=== PATIENT | female | born 1940 | race Two or more races ===

== ENCOUNTER 2021-01-16 12:29 | Inpatient (IN) | payer MEDICARE, OTHER ==
[~2021-01-16] VITALS: Ht 172.7 cm; Wt 86.2 kg
--- NOTE | 2021-01-16 12:30 | NUR ---
pt bib ra 100 from [facility], s/p witnessed syncope at launch table, no trauma per report. in field pt hypertensive, bs wnl. in hospital pt mumbles her name, does not know why she is here, lethargic, unable/reluctant to answer questions, does not follow directions.
[2021-01-16 13:01] LABS: HEMATOCRIT 40.9 % (31.2-41.9); MEAN CORPUSCULAR HEMOGLOBIN 32.5 uug (24.7-32.8); MEAN CORPUSCULAR VOLUME 97.5 fL (75.5-95.3); PLATELET COUNT (AUTO) 197 K/uL (179-408)
[2021-01-16 13:07] LABS: CARBON DIOXIDE 27 mmol/L (21-32); CHLORIDE 103 mmol/L (98-107); GLUCOSE 141 mg/dL (74-106); POTASSIUM 3.4 mmol/L (3.5-5.1); UREA NITROGEN, BLOOD 13 mg/dL (7-18)
[2021-01-16 13:12] LABS: *BILIRUBIN,URIN NEGATIVE (NEGATIVE); *BLOOD, URINE 1+ (NEGATIVE); *CLARITY,URINE CLEAR (CLEAR); *COLOR,URINE YELLOW (YELLOW); *KETONES,URINE NEGATIVE (NEGATIVE); *UROBILINOGEN,URINE 0.2 E.U./dl (NORMAL); LEUKOCYTE ESTERASE ,URINE NEGATIVE (NEGATIVE); NITRITE, URINE NEGATIVE (NEGATIVE); PH,URINE 5.5 (5.0-8.0); UGLUCOSE NEGATIVE (NEGATIVE)
[2021-01-16 13:13] LABS: ALANINE AMINOTRANSFERASE 25 U/L (14-59); ALKALINE PHOSPHATASE 70 U/L (50-136); ASPARTATE AMINOTRANSFERASE 19 U/L (15-37); BILIRUBIN,DIRECT 0.1 mg/dL (0.0-0.2); BILIRUBIN,TOTAL 0.3 mg/dL (0.2-1.0)
[2021-01-16 13:14] LABS: ACETAMINOPHEN < 2.0 ug/mL (10-30)
[2021-01-16] MEDS ORDERED: QUET25TA3 (13:15)
[2021-01-16] MEDS ORDERED: ARICEPT (13:15)
[2021-01-16 13:20] LABS: ETHANOL < 3 MG/DL (0-0)
[2021-01-16 13:21] LABS: *AMPHETAMINE, URINE NEGATIVE (NEGATIVE); *CANNABINOID, URINE POSITIVE (NEGATIVE); *COCCAINE, URINE NEGATIVE (NEGATIVE); *OPIATE, URINE NEGATIVE (NEGATIVE); *PHENCYCLIDINE SCREEN,URINE NEGATIVE (NEGATIVE)
--- NOTE | 2021-01-16 13:35 | NUR ---
DAUGHTER AT BEDSIDE TALKING TO DR. MOELLER.
[2021-01-16 13:37] LABS: THYROID STIMULATING HORMONE 0.675 mIU/mL (0.358-3.740)
--- NOTE | 2021-01-16 13:58 | NUR ---
PT DAUGHTER SAYS THAT THE PT TAKES RISPERDAL, AT NIGHT, DOES NOT KNOW THE DOSAGE
[2021-01-16] MEDS ORDERED: RISP1TAB7 PO (14:02)
--- NOTE | 2021-01-16 14:10 | NUR ---
daughter says that the pt mentation has improved since this am when she face timed the pt. per daughter pt back to her base line. pt talking and smiling now.
[2021-01-16 16:14] LABS: BACTERIA,URINE NONE SEEN /HPF (NONE SEEN); MUCUS,URINE FEW /LPF (0-FEW); WBC,URINE 0-3 /HPF (0-3); YEAST,URINE FEW /HPF (NONE SEEN)
[2021-01-16] MEDS ORDERED: ACETAMINOPHEN 325 MG TABLET PO PRN (19:15)
[2021-01-16] MEDS ORDERED: ONDANSETRON 4 MG/2 ML VIAL IV PRN (19:15)
[2021-01-16] MEDS ORDERED: TEMAZEPAM 15 MG CAPSULE PO PRN (19:15)
[2021-01-16] MEDS ORDERED: MAGNESIUM HYDROXIDE 30 ML LIQUID UDC PO PRN (19:15)
[2021-01-16 20:00] VITALS: BP 168/86
--- NOTE | 2021-01-16 20:03 | NUR ---
Report given to TORRES Ibarra.
[2021-01-16] MEDS ORDERED: TEMAZEPAM 7.5 MG CAPSULE PO PRN (20:30)
--- NOTE | 2021-01-16 20:38 | NUR ---
Pt. admitted to [facility], under care of Dr. Heredia Belongs List completed
[2021-01-16] MEDS: DOCUSATE SODIUM 100 MG CAPSULE PO SCH ×2 (21:00→21:52)
[2021-01-16] MEDS ORDERED: DOCUSATE SODIUM 250 MG CAPSULE PO SCH (21:00)
[2021-01-16] MEDS: risperiDONE 1 MG TABLET PO SCH ×2 (21:00→21:53)
--- NOTE | 2021-01-16 21:00 | NUR ---
Received pt from ER via [facility]; appears pleasant; pt's daughter at bedside; placed on tele; pt arrived with Banda cath; assisted with feeding.
--- NOTE | 2021-01-16 22:30 | NUR ---
Pt seen by MD; pt refused HS medications; pt became very combative; hitting staff; kicking staff; re-orientation rendered; pt pulled out IV; needs attended. MD aware; pt placed on soft wrist restraints and Haldol was ordered for her.
[2021-01-16] MEDS: HALOPERIDOL LACTATE 5 MG/1 ML VIAL IM PRN (23:11)
[2021-01-17] VITALS: BP 134/87
[2021-01-17] MEDS ORDERED: HALOPERIDOL LACTATE 5 MG/1 ML VIAL IM ONE (00:05)
[2021-01-17 04:00] VITALS: BP_SYST 113; BP_SYST 156; BP_DIAS 66; BP_DIAS 91
[2021-01-17 06:20] LABS: MEAN CORPUSCULAR HEMOGLOBIN 32.8 uug (24.7-32.8); MEAN CORPUSCULAR VOLUME 97.6 fL (75.5-95.3); PLATELET COUNT (AUTO) 219 K/uL (179-408)
[2021-01-17] MEDS: PANTOPRAZOLE SODIUM 40 MG TABLET.DR PO SCH (06:32)
[2021-01-17 07:42] LABS: BILIRUBIN,TOTAL 0.3 mg/dL (0.2-1.0); CREATININE 0.9 mg/dL (0.6-1.3); MAGNESIUM 2.4 mg/dL (1.8-2.4); PHOSPHOROUS 2.5 mg/dL (2.5-4.9); POTASSIUM 3.8 mmol/L (3.5-5.1); TOTAL PROTEIN, SERUM 8.2 g/dL (6.4-8.2)
[2021-01-17] MEDS ORDERED: ENOXAPARIN SODIUM 40 MG/0.4 ML DISP.SYRIN SQ SCH ×2 (09:00)
--- NOTE | 2021-01-17 09:30 | NUR ---
pt very aggressive and anxious. Pt Kicked me on chest wall. prior interventions non effective decreased stimuli turned on tv offered bed garcia. Haldol given
[2021-01-17] MEDS: ASPIRIN 81 MG TAB.CHEW PO SCH (09:36)
[2021-01-17] MEDS: METOPROLOL TARTRATE 25 MG TABLET PO SCH ×2 (09:36→19:55)
[2021-01-17] MEDS: ENOXAPARIN SODIUM 100 MG/ML DISP.SYRIN SQ SCH ×2 (09:40→19:58)
[2021-01-17] MEDS: HALOPERIDOL LACTATE 5 MG/1 ML VIAL IM PRN (09:41)
[2021-01-17 11:54] VITALS: BP 150/82
--- NOTE | 2021-01-17 12:00 | NUR ---
Pt able to get out of soft restraint bed alarm turned on. pt pulled on her Banda cath - urine now pinkish in color. pt hitting salesperson men's hats when getting pt back in bed.
[2021-01-17 15:19] VITALS: BP 153/93
[2021-01-17] MEDS: ATORVASTATIN 20 MG TABLET PO SCH (19:55)
[2021-01-17] MEDS: DOCUSATE SODIUM 100 MG CAPSULE PO SCH (19:55)
[2021-01-17] MEDS: risperiDONE 1 MG TABLET PO SCH (19:55)
--- NOTE | 2021-01-17 21:00 | NUR ---
pt very aggressive and anxious. Pt Kicked me and the sitter on stomach prior interventions non effective decreased stimuli turned on tv
[2021-01-17 22:32] VITALS: BP 117/50
[2021-01-18 04:00] VITALS: BP 154/85
[2021-01-18] MEDS: PANTOPRAZOLE SODIUM 40 MG TABLET.DR PO SCH (06:02)
--- NOTE | 2021-01-18 07:00 | NUR ---
patient is in bed, no acute distress noted, offered fluids, turned and repositioned, continue to monitor, kept clean and dry.
[2021-01-18 07:01] LABS: HEMATOCRIT 41.5 % (31.2-41.9); MEAN CORPUSCULAR HEMOGLOBIN 32.7 uug (24.7-32.8); MEAN CORPUSCULAR VOLUME 97.7 fL (75.5-95.3); PLATELET COUNT (AUTO) 226 K/uL (179-408)
[2021-01-18 07:13] LABS: CREATININE 0.9 mg/dL (0.6-1.3); PHOSPHOROUS 3.1 mg/dL (2.5-4.9); POTASSIUM 3.8 mmol/L (3.5-5.1)
[2021-01-18 07:31] VITALS: BP 121/98
[2021-01-18] MEDS: ENOXAPARIN SODIUM 100 MG/ML DISP.SYRIN SQ SCH ×2 (08:09→08:20)
[2021-01-18] MEDS: ASPIRIN 81 MG TAB.CHEW PO SCH (08:13)
[2021-01-18] MEDS: METOPROLOL TARTRATE 25 MG TABLET PO SCH ×2 (08:14→20:20)
--- NOTE | 2021-01-18 08:21 | NUR ---
lovenox held patient noted with hematuria
--- NOTE | 2021-01-18 09:00 | NUR ---
patient in bed, no acute distress noted, turned and repositioned, kept clean and dry, fluids offered, continue to monitor
[2021-01-18] MEDS: LOSARTAN POTASSIUM 25 MG TABLET PO SCH (09:24)
--- NOTE | 2021-01-18 09:30 | NUR ---
soft wrist restrain discontinued, continue to monitor for patient behaviour.
--- NOTE | 2021-01-18 09:49 | NUR ---
piping drafter dr ying is aware about troponin 3.111.
[2021-01-18 11:41] VITALS: BP 130/71
[2021-01-18 15:45] VITALS: BP 128/70
[2021-01-18] MEDS: HALOPERIDOL LACTATE 5 MG/1 ML VIAL IM PRN (16:31)
--- NOTE | 2021-01-18 18:37 | NUR ---
during shift, no combative episodes noted until after lunch, provided redirection, with some effectiveness for some period of time, restrains discontinued cook morning since patient has sitter, patient stated acting out, pulling the oxygen tubing, catheter, trying to get out of the bed in the evening, Haldol administered as ordered, effective, spoke to daughter, questions answered, kept patient comfortable, clean and dry, turned and repositioned, kept patient safe during shift. no skin issues noted.
--- NOTE | 2021-01-18 18:42 | NUR ---
patient is examined by dr Ortega psychatrist at bedside for psych issues
[2021-01-18] MEDS: DOCUSATE SODIUM 100 MG CAPSULE PO SCH (20:19)
[2021-01-18] MEDS: ATORVASTATIN 20 MG TABLET PO SCH (20:19)
[2021-01-18] MEDS: risperiDONE 1 MG TABLET PO SCH (20:19)
[2021-01-19] MEDS: HALOPERIDOL LACTATE 5 MG/1 ML VIAL IM PRN ×2 (02:42→19:36)
[2021-01-19] MEDS: PANTOPRAZOLE SODIUM 40 MG TABLET.DR PO SCH (06:38)
[2021-01-19 07:00] LABS: HEMATOCRIT 39.9 % (31.2-41.9); MEAN CORPUSCULAR HEMOGLOBIN 32.7 uug (24.7-32.8); MEAN CORPUSCULAR VOLUME 98.1 fL (75.5-95.3); PLATELET COUNT (AUTO) 192 K/uL (179-408)
[2021-01-19 07:17] LABS: CREATININE 1.3 mg/dL (0.6-1.3); POTASSIUM 3.8 mmol/L (3.5-5.1)
--- NOTE | 2021-01-19 07:30 | NUR ---
Sleeping, appears comfortable. 1:1 sitter at bedside.
[2021-01-19 08:00] VITALS: BP 120/49
--- NOTE | 2021-01-19 09:30 | NUR ---
patient assisted to the bathroom with help of assistant womens volleyball coach. [facility], patient ate breakfast without difficulty.
[2021-01-19] MEDS: LOSARTAN POTASSIUM 25 MG TABLET PO SCH (09:32)
[2021-01-19] MEDS: ASPIRIN 81 MG TAB.CHEW PO SCH (09:32)
[2021-01-19] MEDS: METOPROLOL TARTRATE 25 MG TABLET PO SCH ×2 (09:40→21:00)
[2021-01-19 12:00] VITALS: BP 122/52
--- NOTE | 2021-01-19 13:30 | NUR ---
patient requesting to ambulate, physical therapist in room room, upon standing with assistance of physical therapist and rehabilitation assistant patient states feeling dizzy, patient was sat down at the edge of bed. Blood pressure was checked and noted to be 85/60 hr: 77. patient was laid onto bed, legs elevated.
--- NOTE | 2021-01-19 14:00 | NUR ---
patient currently laying in bed blood pressure reassessed b/p: 107/70 hr: 77.
[2021-01-19 15:44] VITALS: BP 110/62
--- NOTE | 2021-01-19 16:40 | NUR ---
DR. Karimi aware of x1 episode of low blood pressure, per doctor she will reassess the medications and recommends parameter of hold <110.
--- NOTE | 2021-01-19 17:00 | NUR ---
patient currently laying in bed in no distress at this time. v/s wnl.
[2021-01-19 20:00] VITALS: BP 108/58
[2021-01-19] MEDS: DOCUSATE SODIUM 100 MG CAPSULE PO SCH (21:00)
[2021-01-19] MEDS ORDERED: risperiDONE 1 MG TABLET PO SCH (21:00)
[2021-01-19] MEDS: ATORVASTATIN 20 MG TABLET PO SCH (21:00)
[2021-01-20] VITALS: BP 117/62
[2021-01-20 04:00] VITALS: BP 110/65
--- NOTE | 2021-01-20 05:43 | NUR ---
Pt rested in between care; last night; very combative; haldol given x1; pt assisted to bathroom and had BMx1; pt remains non compliant with meds; sitter at bedside; safety maintained; continue to monitor; continue plan of care.
[2021-01-20 05:55] LABS: HEMATOCRIT 38.6 % (31.2-41.9); MEAN CORPUSCULAR HEMOGLOBIN 32.9 uug (24.7-32.8); MEAN CORPUSCULAR VOLUME 97.7 fL (75.5-95.3); PLATELET COUNT (AUTO) 198 K/uL (179-408)
[2021-01-20 06:08] LABS: PHOSPHOROUS 3.3 mg/dL (2.5-4.9); POTASSIUM 3.4 mmol/L (3.5-5.1)
[2021-01-20] MEDS: PANTOPRAZOLE SODIUM 40 MG TABLET.DR PO SCH (06:13)
--- NOTE | 2021-01-20 07:15 | NUR ---
Received patient asleep in bed. Sitter at bedside for safety. On room air. No signs of acute distress. Will continue to monitor.
[2021-01-20] MEDS ORDERED: POTASSIUM CHLORIDE 20 MEQ POWDER PACKET GT ONE (07:30)
[2021-01-20] MEDS ORDERED: risperiDONE 0.5 MG TABLET PO SCH (09:00)
[2021-01-20] MEDS ORDERED: ENSURE ENLIVE (VAN) 240 ML LIQUID PO SCH (09:00)
[2021-01-20] MEDS ORDERED: LOSARTAN POTASSIUM 25 MG TABLET PO SCH (09:00)
[2021-01-20] MEDS: METOPROLOL TARTRATE 25 MG TABLET PO SCH (09:00)
[2021-01-20] MEDS: ASPIRIN 81 MG TAB.CHEW PO SCH (09:14)
[2021-01-20 12:12] VITALS: BP 121/52
[2021-01-20 16:05] VITALS: BP 127/78
[2021-01-20] MEDS ORDERED: RISP1TAB7 PO (16:31)
[2021-01-20] MEDS ORDERED: METO25TA6 PO (16:31)
[2021-01-20] MEDS ORDERED: ASPI81TA31 PO (16:31)
[2021-01-20] MEDS ORDERED: PANT40TA2 PO (16:31)
[2021-01-20] MEDS ORDERED: RISP0.5T5 PO (16:31)
[2021-01-20] MEDS ORDERED: ATOR20TA PO (16:31)
[2021-01-20] MEDS ORDERED: LOSA25TA3 PO (16:31)
--- NOTE | 2021-01-20 19:26 | NUR ---
Discharged patient to home with . On room air. No signs of acute distress. Patient denies pain/ discomfort at this time. No disruptive/ aggressive behavior noted. Discharge instructions given and discharge documents signed. Belongings accounted for and belongings list signed. IV access removed. ID armband removed. Patient wheeled to hospital lobby. Patient left via private car with daughter.
== END 2021-01-20 19:30 | disposition home health service (06) | DRG 281 ==
LOC: ER 12:29 → TELE3 20:08 → MEDSURG3 01-20 11:59
PROVIDERS: ADMIT Internal Medicine; ATTEND Student in an Organized Health Care Education/Training Program
DX: R55 Syncope and collapse (principal); I21.A1 Myocardial infarction type 2; F23 Brief psychotic disorder; F03.91 Unspecified dementia, unspecified severity, with behavioral disturbance; F05 Delirium due to known physiological condition; Z68.28 Body mass index [BMI] 28.0-28.9, adult; E66.9 Obesity, unspecified; I10 Essential (primary) hypertension; I70.0 Atherosclerosis of aorta; E87.6 Hypokalemia; Z20.822 Contact with and (suspected) exposure to COVID-19; F29 Unspecified psychosis not due to a substance or known physiological condition; F25.9 Schizoaffective disorder, unspecified; R78.5 Finding of other psychotropic drug in blood; D75.89 Other specified diseases of blood and blood-forming organs
CPT/HCPCS: 36415; 70030-TC; 70450; 71045; 83605; 83735; 84100; 84443; 85025; 85730; 87040; 87086; 93005; 93307; 97161; A4663; G0378; G0480; J1630; J1650

== ENCOUNTER 2024-08-10 13:03 | Inpatient (IN) | payer MEDICARE, OTHER ==
[~2024-08-10] VITALS: Ht 160 cm; Wt 54.4 kg
[~2024-08-10 13:03] MED LIST: ASPI81TA31 PO; ATOR20TA PO; LOSA25TA3 PO; METO25TA6 PO; PANT40TA2 PO; RISP0.5T5 PO; RISP1TAB7 PO
[2024-08-10 15:30] VITALS: BP 115/54; TEMP 98; O2SAT 99
[2024-08-10] MEDS ORDERED: METO37.5 PO (16:11)
[2024-08-10] MEDS ORDERED: CLOP75TA33 PO (16:11)
[2024-08-10] MEDS ORDERED: ASCO500C6 PO (16:11)
[2024-08-10] MEDS ORDERED: MELA1TAB27 PO (16:11)
[2024-08-10] MEDS ORDERED: SENN8.6T19 PO (16:11)
[2024-08-10] MEDS ORDERED: ACET325T53 PO (16:11)
[2024-08-10] MEDS ORDERED: QUET400T53 PO (16:11)
[2024-08-10] MEDS ORDERED: VALP250S4 PO (16:11)
[2024-08-10] MEDS ORDERED: MULT-213 PO (16:11)
[2024-08-10] MEDS ORDERED: ATOR80TA PO (16:11)
[2024-08-10] MEDS ORDERED: ACETAMINOPHEN 325 MG TABLET PO PRN (17:00)
[2024-08-10] MEDS ORDERED: MAG HYDROX/AL HYDROX/SIMETH 30 ML LIQUID UDC PO PRN (17:00)
[2024-08-10] MEDS ORDERED: MAGNESIUM HYDROXIDE 30 ML LIQUID UDC PO PRN (17:00)
[2024-08-10] MEDS ORDERED: LORAZEPAM 0.5 MG TABLET PO PRN (17:00)
[2024-08-10] MEDS ORDERED: ZOLPIDEM 5 MG TABLET PO PRN (17:00)
[2024-08-10] MEDS: BLOOD SUGAR DIAGNOSTIC 1 EACH STRIP VI ONE (17:51)
[2024-08-10] MEDS ORDERED: ACETAMINOPHEN 325 MG TABLET-SA PATIENTS-PAIN ONLY PO PRN (19:45)
[2024-08-10 20:00] VITALS: BP 127/56; TEMP 99; O2SAT 98
[2024-08-10] MEDS ORDERED: PYRIDOXINE HCL PO SCH (21:00)
[2024-08-10] MEDS ORDERED: MELATONIN PO SCH (21:00)
[2024-08-10] MEDS: ATORVASTATIN 40 MG TABLET PO SCH (21:44)
[2024-08-10] MEDS: METOPROLOL TARTRATE 25 MG TABLET PO SCH (21:45)
[2024-08-10] MEDS: SENNOSIDES 1 TABLET PO SCH (21:45)
[2024-08-10] MEDS: LORAZEPAM 0.5 MG TABLET PO PRN (21:47)
[2024-08-11] MEDS: ZOLPIDEM 5 MG TABLET PO PRN (01:17)
[2024-08-11] MEDS ORDERED: ACETAMINOPHEN 325 MG TABLET PO PRN (06:15)
[2024-08-11 07:55] LABS: EOSINOPHILS # (AUTO) 0.1 K/uL (0.0-0.7); EOSINOPHILS % (AUTO) 3.3 % (0.0-7.0); HEMATOCRIT 36.4 % (31.2-41.9); HEMOGLOBIN 12.1 g/dL (10.9-14.3); LYMPHOCYTES # (AUTO) 1.3 K/uL (0.8-4.8); LYMPHOCYTES % (AUTO) 33.5 % (20.5-51.5); MEAN CORPUSCULAR HEMOGLOBIN 34.1 uug (24.7-32.8); MEAN CORPUSCULAR HGB CONC 33 g/dL (32.3-35.6); MEAN CORPUSCULAR VOLUME 102.4 fL (75.5-95.3); MONOCYTES # (AUTO) 0.4 K/uL (0.1-1.30); MONOCYTES % (AUTO) 10.3 % (0.0-11.0); NEUTROPHILS % (AUTO) 51.9 % (38.5-71.5); PLATELET COUNT (AUTO) 143 K/uL (179-408); RED BLOOD CELL COUNT(AUTO) 3.55 MIL/uL (3.63-4.92); RED CELL DISTRIBUTION WIDTH 13.9 % (12.3-17.7); WHITE BLOOD COUNT (AUTO) 3.9 K/uL (3.8-11.8)
[2024-08-11 08:02] VITALS: BP 109/47; TEMP 98.1; O2SAT 98
[2024-08-11 08:13] LABS: ALANINE AMINOTRANSFERASE 17 U/L (14-59); ALBUMIN 2.8 g/dL (3.4-5.0); ALKALINE PHOSPHATASE 65 U/L (50-136); ASPARTATE AMINOTRANSFERASE 23 U/L (15-37); BILIRUBIN,TOTAL 0.6 mg/dL (0.2-1.0); CARBON DIOXIDE 28 mmol/L (21-32); CHLORIDE 108 mmol/L (98-107); CREATININE 0.6 mg/dL (0.6-1.3); DIFFERENTIAL COMMENT 1; GLUCOSE 89 mg/dL (74-106); POTASSIUM 3.7 mmol/L (3.5-5.1); SODIUM SERUM 143 mmol/L (136-145); TOTAL PROTEIN, SERUM 6.7 g/dL (6.4-8.2); UREA NITROGEN, BLOOD 6 mg/dL (7-18)
[2024-08-11] MEDS: CLOPIDOGREL 75 MG TABLET PO SCH (08:48)
[2024-08-11] MEDS: ASCORBIC ACID 500 MG TABLET PO SCH (08:48)
[2024-08-11] MEDS: MULTIVITAMINS,THERAPEUTIC TABLET PO SCH (08:48)
[2024-08-11] MEDS ORDERED: VALPROIC ACID 250 MG/5 ML LIQUID UDC PO SCH (09:00)
[2024-08-11] MEDS: DIVALPROEX SPRINKLE 125 MG CAP.SPRINK PO SCH (10:12)
[2024-08-11] MEDS ORDERED: MELA3CAP2 PO (10:55)
[2024-08-11 16:11] VITALS: BP 105/66; TEMP 98; O2SAT 99
[2024-08-11 19:46] VITALS: BP 107/79; TEMP 98.8; O2SAT 96
[2024-08-11] MEDS: QUETIAPINE FUMARATE 25 MG TABLET PO SCH (20:35)
[2024-08-12] MEDS: LORAZEPAM 0.5 MG TABLET PO PRN (00:04)
[2024-08-12 07:56] VITALS: BP 107/62; TEMP 98.2; O2SAT 98
[2024-08-12 15:17] VITALS: BP 152/89; TEMP 98; O2SAT 98
[2024-08-12 19:46] VITALS: BP 116/71; TEMP 98.4; O2SAT 99
[2024-08-12] MEDS: ATORVASTATIN 20 MG TABLET PO SCH (21:18)
[2024-08-13 07:58] VITALS: BP 130/70; TEMP 98; O2SAT 99
[2024-08-13 08:07] LABS: BASOPHILS % (AUTO) 0.9 % (0.0-2.0); EOSINOPHILS # (AUTO) 0.2 K/uL (0.0-0.7); EOSINOPHILS % (AUTO) 3.6 % (0.0-7.0); HEMATOCRIT 37.6 % (31.2-41.9); HEMOGLOBIN 12.4 g/dL (10.9-14.3); LYMPHOCYTES # (AUTO) 1.8 K/uL (0.8-4.8); LYMPHOCYTES % (AUTO) 40.7 % (20.5-51.5); MEAN CORPUSCULAR HEMOGLOBIN 33.7 uug (24.7-32.8); MEAN CORPUSCULAR HGB CONC 33 g/dL (32.3-35.6); MEAN CORPUSCULAR VOLUME 102.2 fL (75.5-95.3); MONOCYTES # (AUTO) 0.4 K/uL (0.1-1.30); MONOCYTES % (AUTO) 8.8 % (0.0-11.0); PLATELET COUNT (AUTO) 160 K/uL (179-408); RED BLOOD CELL COUNT(AUTO) 3.67 MIL/uL (3.63-4.92); RED CELL DISTRIBUTION WIDTH 13.8 % (12.3-17.7); WHITE BLOOD COUNT (AUTO) 4.4 K/uL (3.8-11.8)
[2024-08-13] MEDS: FAMOTIDINE 20 MG TABLET PO SCH (08:16)
[2024-08-13 08:23] LABS: DIFFERENTIAL COMMENT 1
[2024-08-13 08:39] LABS: THYROID STIMULATING HORMONE 0.863 mIU/mL (0.358-3.740)
[2024-08-13 09:04] LABS: ALANINE AMINOTRANSFERASE 19 U/L (14-59); ALBUMIN 3.1 g/dL (3.4-5.0); ALKALINE PHOSPHATASE 80 U/L (50-136); ASPARTATE AMINOTRANSFERASE 26 U/L (15-37); BILIRUBIN,TOTAL 0.5 mg/dL (0.2-1.0); CALCIUM 9.1 mg/dL (8.5-10.1); CARBON DIOXIDE 24 mmol/L (21-32); CHLORIDE 105 mmol/L (98-107); CREATININE 0.5 mg/dL (0.6-1.3); GLUCOSE 95 mg/dL (74-106); MAGNESIUM 2.4 mg/dL (1.8-2.4); PHOSPHOROUS 3.6 mg/dL (2.5-4.9); POTASSIUM 3.6 mmol/L (3.5-5.1); SODIUM SERUM 139 mmol/L (136-145); TOTAL PROTEIN, SERUM 7.9 g/dL (6.4-8.2); UREA NITROGEN, BLOOD 15 mg/dL (7-18)
[2024-08-13 15:15] VITALS: BP 138/88; TEMP 98; O2SAT 98
[2024-08-13 19:58] VITALS: BP 162/99; TEMP 98.1; O2SAT 95
[2024-08-14 08:06] VITALS: BP 115/53; TEMP 98.5; O2SAT 100
[2024-08-14 16:07] VITALS: BP 120/71; TEMP 97.8; O2SAT 100
[2024-08-14 19:58] VITALS: BP 128/78; TEMP 97.9; O2SAT 96
[2024-08-15 08:08] VITALS: BP 166/46; TEMP 98.3; O2SAT 98
[2024-08-15 16:20] VITALS: BP 111/66; TEMP 97.9; O2SAT 100
[2024-08-15 19:57] VITALS: BP 134/76; TEMP 97.9; O2SAT 98
[2024-08-15] MEDS: QUETIAPINE FUMARATE 25 MG TABLET PO SCH (20:08)
[2024-08-16 07:38] VITALS: BP 110/62; TEMP 98; O2SAT 96
[2024-08-16 15:01] VITALS: BP 125/68; TEMP 98; O2SAT 100
[2024-08-16 19:48] VITALS: BP 120/90; TEMP 98; O2SAT 98
[2024-08-17 08:06] VITALS: BP 127/61; TEMP 98.1; O2SAT 100
[2024-08-17 16:07] VITALS: BP 123/51; TEMP 98; O2SAT 100
[2024-08-17 20:00] VITALS: BP 118/83; TEMP 98.2; O2SAT 97
[2024-08-18 08:04] VITALS: BP 144/81; TEMP 98.3; O2SAT 100
[2024-08-18 16:32] VITALS: BP 140/80; TEMP 98.5; O2SAT 100
[2024-08-18 19:48] VITALS: BP 142/81; TEMP 97.9; O2SAT 100
[2024-08-19 08:01] VITALS: BP 90/57; TEMP 98; O2SAT 96
[2024-08-19 15:18] VITALS: BP 97/56; TEMP 98; O2SAT 99
[2024-08-19 23:18] VITALS: BP 106/57; TEMP 98.1; O2SAT 100
[2024-08-20 08:41] VITALS: BP 110/69; TEMP 98.2; O2SAT 98
[2024-08-20 15:44] VITALS: BP 119/65; TEMP 98.2; O2SAT 100
[2024-08-20 19:39] VITALS: BP 122/79; TEMP 98.2; O2SAT 94
[2024-08-21 08:04] VITALS: BP 138/71; TEMP 98.3; O2SAT 96
[2024-08-21 09:26] VITALS: BP 138/71
== END 2024-08-21 11:00 | DRG 885 ==
LOC: GPS 15:00
PROVIDERS: ADMIT Psychiatry & Neurology Psychosomatic Medicine
DX: F31.9 Bipolar disorder, unspecified (principal); F03.911 Unspecified dementia, unspecified severity, with agitation; E44.0 Moderate protein-calorie malnutrition; Z91.148 Patient's other noncompliance with medication regimen for other reason; Z91.199 Patient's noncompliance with other medical treatment and regimen due to unspecified reason; E78.5 Hyperlipidemia, unspecified; I25.2 Old myocardial infarction; I10 Essential (primary) hypertension; Z88.2 Allergy status to sulfonamides; Z88.3 Allergy status to other anti-infective agents; Z88.6 Allergy status to analgesic agent; D75.89 Other specified diseases of blood and blood-forming organs
CPT/HCPCS: 36415; 71045; 80164; 83735; 84100; 84443; 85025; 93005